=== PATIENT | female | born 1970 | race Hispanic/Latino ===

== ENCOUNTER 2018-06-13 09:34 | Day surgery (SDC) | payer MEDICARE ==
[2018-06-12 15:00] VITALS: BP 107/59
--- NOTE | 2018-06-12 15:58 | NUR ---
[facility] USED, SHANTEL#[id number]
[2018-06-13] VITALS (15 sets, daily range): BP systolic 110–143; BP diastolic 66–78
[~2018-06-13] VITALS: Ht 154.9 cm; Wt 81.3 kg
[2018-06-13] MEDS: CEFAZOLIN SODIUM 1 GM VIAL IVP SCH ×2 (06:00→14:56)
[~2018-06-13 09:34] MED LIST: ALBU6.7H IH; CEPH500B PO; FLUT15.88 NS; GABA-531 PO; LISI2.5T2 PO; METF-444 PO; MONT10TA24 PO; OMEP20TA25 PO; PRAV20TA4 PO; SERT100T PO; TRAZ-185 PO; TYLENOL ARTHRITIS PO; VITAMIN D3 PO
[2018-06-13] MEDS ORDERED: SODIUM CHLORIDE 0.9% 1000ML 1,000 ML IV ONE (09:47)
--- NOTE | 2018-06-13 10:17 | NUR ---
CLIP RIGHT ARM CLIPPED AND WIPPED WITH CHRIST BY AMY
[2018-06-13] MEDS ORDERED: FENTANYL CITRATE PF 50 MCG/1 ML 2ML VIAL ONE (14:43)
[2018-06-13] MEDS ORDERED: MIDAZOLAM HCL 1 MG/ML 2ML VIAL ONE (14:43)
[2018-06-13] MEDS ORDERED: PROPOFOL 10 MG/ML 20ML VIAL IV ONE (14:43)
[2018-06-13] MEDS ORDERED: MEPERIDINE-PF 25 MG/ML SYG ONE ×2 (15:48→15:59)
[2018-06-13] MEDS ORDERED: KETOROLAC TROMETHAMINE 30MG/ML ONE (16:08)
[2018-06-13] MEDS ORDERED: HYDROCODONE/ACETAMINOPHEN 7.5/325 MG TAB ONE (16:23)
--- NOTE | 2018-06-13 17:40 | NUR ---
Pt discharged home, tolerating fluids well, ambulating well, voided just prior to leaving. Denies any significant pain, nausea, or dizziness. Pt and daughter report no further questions at this time. Dressing to right wrist remains dry clean and intact with signs of good peripheral circulation. Ice packs sent home with pt. Copy of Dr. Tabor's Orders/Discharge Instructions also given to pt and daughter.
== END 2018-06-13 17:40 | disposition home or self-care (01) ==
LOC: DAH 09:34
DX: G56.01 Carpal tunnel syndrome, right upper limb (principal); M65.821 Other synovitis and tenosynovitis, right upper arm; Z98.890 Other specified postprocedural states; Z90.710 Acquired absence of both cervix and uterus; Z79.84 Long term (current) use of oral hypoglycemic drugs; K21.9 Gastro-esophageal reflux disease without esophagitis; I10 Essential (primary) hypertension; E11.9 Type 2 diabetes mellitus without complications; N32.81 Overactive bladder; F32.9 Major depressive disorder, single episode, unspecified; Z79.899 Other long term (current) drug therapy
CPT/HCPCS: 25115; 64721; 82948 ×2; 88304; A4218; A4649; A4930 ×2; A6223; A6446; J0690; J1885; J2175 ×2; J2250; J2704; J3010; J7030 ×2

== ENCOUNTER 2018-07-25 07:32 | Day surgery (SDC) | payer MEDICARE ==
[2018-07-24 14:04] VITALS: BP 110/65
[~2018-07-25] VITALS: Ht 157.5 cm; Wt 78.9 kg
[2018-07-25] VITALS (17 sets, daily range): BP systolic 119–147; BP diastolic 69–84
[~2018-07-25 07:32] MED LIST changes: +CEFAZOLIN SODIUM 1 GM VIAL IVP SCH; -CEPH500B PO; +SODIUM CHLORIDE 0.9% 1000ML 1,000 ML IV ONE; +SUCCINYLCHOLINE 200MG/10ML SYR ONE
[2018-07-25] MEDS ORDERED: PROPOFOL 10 MG/ML 20ML VIAL IV ONE (07:47)
[2018-07-25] MEDS ORDERED: MIDAZOLAM HCL 1 MG/ML 2ML VIAL ONE (07:47)
[2018-07-25] MEDS ORDERED: FENTANYL CITRATE PF 50 MCG/1 ML 2ML VIAL ONE ×2 (07:48→09:39)
[2018-07-25] MEDS ORDERED: ONDANSETRON HCL 4 MG/2 ML VIAL ONE (07:49)
--- NOTE | 2018-07-25 07:55 | NUR ---
VALUABLES: PATIENT LEFT PROVENTIL INHALER, BREO INHALER, TYLENOL ARTHRITIS, VITAMIN D3, AND FLUTICASONE SPRAY AT HOME. OTHER MEDICATIONS GIVEN TO DAUGHTER - DAMASO MCCOLLUM.
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
[2018-07-25] MEDS ORDERED: PHENYLEPHRINE HCL 10 MG/ML 1ML VIAL IV ONE (08:43)
[2018-07-25] MEDS ORDERED: EPHEDRINE SULFATE 50 MG/ML AMPULE ONE (08:43)
[2018-07-25] MEDS ORDERED: MEPERIDINE-PF 25 MG/ML SYG ONE (09:49)
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
== END 2018-07-25 11:35 | disposition home or self-care (01) ==
LOC: DAH 07:32
DX: G56.02 Carpal tunnel syndrome, left upper limb (principal); S63.592A Other specified sprain of left wrist, initial encounter; X58.XXXA Exposure to other specified factors, initial encounter; Y93.9 Activity, unspecified; Y92.89 Other specified places as the place of occurrence of the external cause; Y99.9 Unspecified external cause status; Z98.890 Other specified postprocedural states; Z90.710 Acquired absence of both cervix and uterus; Z79.899 Other long term (current) drug therapy; I10 Essential (primary) hypertension; E78.5 Hyperlipidemia, unspecified; J45.909 Unspecified asthma, uncomplicated; G47.30 Sleep apnea, unspecified; K21.9 Gastro-esophageal reflux disease without esophagitis; F41.9 Anxiety disorder, unspecified; F32.9 Major depressive disorder, single episode, unspecified
CPT/HCPCS: 25115; 64721; 82948 ×2; A4218; A4649; A6223; A6446; J0330; J0690; J2175; J2250; J2370; J2405; J2704; J3010 ×2; J3490; J7030; J7120

== ENCOUNTER → 2019-03-31 | Outpatient (CLI) | payer MEDICARE ==
[~2019-03-31] MED LIST changes: -ALBU6.7H IH; +ALBU6.7H9 IH; -CEFAZOLIN SODIUM 1 GM VIAL IVP SCH; +FLUT15.845 NS; -FLUT15.88 NS; -SODIUM CHLORIDE 0.9% 1000ML 1,000 ML IV ONE; -SUCCINYLCHOLINE 200MG/10ML SYR ONE
[2019-03-31 15:15] LABS: CREATININE 0.6 mg/dL (0.5-1.5)
== END | disposition home or self-care (01) ==
LOC: LAB 14:39
PROVIDERS: ATTEND Internal Medicine
DX: R07.1 Chest pain on breathing (principal); R06.02 Shortness of breath
CPT/HCPCS: 36415; 82565; 84520

== ENCOUNTER → 2019-04-02 | Outpatient (CLI) | payer MEDICARE ==
[~2019-04-02] MED LIST changes: +IOHEXOL-350 75 ML VIAL IV ONE
== END | disposition home or self-care (01) ==
LOC: RAH 10:25
PROVIDERS: ATTEND Internal Medicine
DX: I11.9 Hypertensive heart disease without heart failure (principal); M47.815 Spondylosis without myelopathy or radiculopathy, thoracolumbar region; K76.0 Fatty (change of) liver, not elsewhere classified; R06.02 Shortness of breath
CPT/HCPCS: 71275; Q9967